=== PATIENT | male | born 1955 | race Caucasian/White ===

== ENCOUNTER 2022-06-17 00:27 | Inpatient (IN) | payer MEDICARE, BC ==
[~2022-06-17] VITALS: Ht 180.3 cm; Wt 95.3 kg
[2022-06-17 00:59] LABS: ABG BASE EXCESS -1.8 mmol/L; ABG HCO3 21.4 mmol/L; ABG PCO2 31.3 mmHg (35.0-45.0); ABG PH 7.453 (7.350-7.450); ABG SITE LEFT RADIAL; ABG TOTAL HEMOGLOBIN 10.8 G/dL (13.5-18.0); COHb 0.3 % (0.5-1.5); MetHb 0.1 % (0.0-1.5); O2Hb 84.2 % (94.0-97.0); VENT MODE Nasal Cannula
[2022-06-17 01:02] LABS: HEMATOCRIT 31.1 % (36.7-47.1); MEAN CORPUSCULAR VOLUME 86.1 fL (73.0-96.2); PLATELET COUNT (AUTO) 194 K/uL (152-348)
[2022-06-17 01:37] LABS: BILIRUBIN,TOTAL 0.5 mg/dL (0.2-1.0); POTASSIUM 4.2 mmol/L (3.5-5.1); TOTAL PROTEIN, SERUM 6.8 g/dL (6.4-8.2)
[2022-06-17] MEDS ORDERED: IV NORMAL SALINE 500 ML BAG IV ONE (02:00)
[2022-06-17] MEDS ORDERED: ONDANSETRON 4 MG/2 ML VIAL ONE (02:12)
[2022-06-17] MEDS ORDERED: ONDANSETRON 4 MG/2 ML VIAL IV ONE (02:15)
[2022-06-17] MEDS ORDERED: FURO-152 PO (03:18)
[2022-06-17] MEDS ORDERED: FUROSEMIDE 20 MG/2 ML VIAL IV ONE (03:30)
[2022-06-17] MEDS ORDERED: ACETAMINOPHEN 325 MG TABLET PO PRN (03:45)
[2022-06-17] MEDS ORDERED: MORPHINE SULFATE 2 MG/1 ML DISP.SYRIN IVP PRN (03:45)
[2022-06-17] MEDS ORDERED: hydrALAZINE HCL 20 MG/1 ML VIAL IV PRN (03:45)
[2022-06-17] MEDS ORDERED: ONDANSETRON 4 MG/2 ML VIAL IV PRN (03:45)
[2022-06-17] MEDS: FUROSEMIDE 40 MG/4 ML VIAL IV SCH ×2 (03:45→09:34)
[2022-06-17] MEDS ORDERED: ENOXAPARIN SODIUM 100 MG/ML DISP.SYRIN SQ SCH ×2 (03:45→09:00)
[2022-06-17] MEDS ORDERED: FUROSEMIDE 20 MG/2 ML VIAL ONE (04:25)
[2022-06-17] MEDS ORDERED: ALBUTEROL SULFATE 2.5 MG/3 ML NEBU NEB PRN (05:15)
[2022-06-17 06:07] LABS: *AMPHETAMINE, URINE NEGATIVE (NEGATIVE); *CANNABINOID, URINE NEGATIVE (NEGATIVE); *COCCAINE, URINE NEGATIVE (NEGATIVE); *OPIATE, URINE NEGATIVE (NEGATIVE); *PHENCYCLIDINE SCREEN,URINE NEGATIVE (NEGATIVE)
[2022-06-17 08:00] VITALS: BP 146/91
[2022-06-17] MEDS: FLUTICASONE/VILANTEROL 1 EACH BLST.W.DEV INH SCH (09:34)
[2022-06-17] MEDS ORDERED: LORAZEPAM 2 MG/1 ML VIAL IV PRN (10:45)
[2022-06-17 12:00] VITALS: BP 143/82
[2022-06-17] MEDS: LORAZEPAM 2 MG/1 ML VIAL IV PRN ×2 (12:05→22:28)
[2022-06-17] MEDS: CHLORDIAZEPOXIDE HCL 25 MG CAPSULE PO SCH ×2 (13:17→17:45)
[2022-06-17] MEDS: FOLIC ACID 1 MG TABLET PO SCH (13:17)
[2022-06-17] MEDS: THIAMINE HCL 100 MG TABLET PO SCH (13:17)
[2022-06-17] MEDS: CEphaleXIN 500 MG CAPSULE PO SCH ×3 (13:17→20:45)
[2022-06-17 16:00] VITALS: BP 123/69
[2022-06-17] MEDS ORDERED: ATOR40TA PO (16:32)
[2022-06-17] MEDS ORDERED: LOSA25TA27 PO (16:32)
[2022-06-17] MEDS ORDERED: AMIO200T5 PO (16:32)
[2022-06-17] MEDS ORDERED: FURO40TA5 PO (16:32)
[2022-06-17] MEDS ORDERED: CARV6.252 PO (16:32)
[2022-06-17] MEDS ORDERED: SPIR25TA6 PO (16:32)
[2022-06-17] MEDS ORDERED: APIX5TAB PO (16:32)
[2022-06-17] MEDS ORDERED: HEPARIN/D5W DRIP 500 ML IV PRN (17:15)
[2022-06-17] MEDS: APIXABAN 5 MG TABLET PO SCH (20:46)
[2022-06-17 20:54] VITALS: BP 114/60
[2022-06-17 23:51] VITALS: BP 120/55
[2022-06-18] MEDS ORDERED: AMIODARONE HCL IV 150 MG in IV DEXTROSE 5% 100 ML IV ONE (01:00)
[2022-06-18] MEDS ORDERED: AMIODARONE HCL IV 900 MG in IV DEXTROSE 5% 482 ML IV PRN (01:10)
[2022-06-18] MEDS ORDERED: AMIODARONE HCL 150 MG/3 ML VIAL IV ONE ×2 (01:14→01:20)
[2022-06-18 07:12] LABS: HEMATOCRIT 29.6 % (36.7-47.1); MEAN CORPUSCULAR HEMOGLOBIN 28.1 uug (23.8-33.4); MEAN CORPUSCULAR VOLUME 85.7 fL (73.0-96.2); PLATELET COUNT (AUTO) 159 K/uL (152-348)
[2022-06-18 07:20] LABS: THYROID STIMULATING HORMONE 3.159 mIU/mL (0.358-3.740)
[2022-06-18 07:38] LABS: CREATININE 1.2 mg/dL (0.6-1.3); PHOSPHOROUS 3.6 mg/dL (2.5-4.9); POTASSIUM 3.7 mmol/L (3.5-5.1)
[2022-06-18 08:00] VITALS: BP_SYST 106; BP_SYST 132; BP_DIAS 68; BP_DIAS 78
[2022-06-18] MEDS ORDERED: AMIODARONE HCL 200 MG TABLET PO SCH ×3 (09:00→11:00)
[2022-06-18] MEDS ORDERED: SPIRONOLACTONE 25 MG TABLET PO SCH (09:00)
[2022-06-18] MEDS ORDERED: LOSARTAN POTASSIUM 25 MG TABLET PO SCH (09:00)
[2022-06-18] MEDS ORDERED: POTASSIUM CHLORIDE 20 MEQ POWDER PACKET PO ONE (09:00)
[2022-06-18] MEDS ORDERED: FUROSEMIDE 20 MG TABLET PO SCH ×2 (09:00)
[2022-06-18] MEDS ORDERED: CARVEDILOL 6.25 MG TABLET PO SCH (09:00)
[2022-06-18] MEDS ORDERED: FUROSEMIDE 40 MG TABLET PO SCH (09:00)
[2022-06-18] MEDS: CEphaleXIN 500 MG CAPSULE PO SCH ×2 (09:05→13:18)
[2022-06-18] MEDS: CHLORDIAZEPOXIDE HCL 25 MG CAPSULE PO SCH ×2 (09:05→13:18)
[2022-06-18] MEDS: FOLIC ACID 1 MG TABLET PO SCH (09:05)
[2022-06-18] MEDS: THIAMINE HCL 100 MG TABLET PO SCH (09:09)
[2022-06-18] MEDS: FLUTICASONE/VILANTEROL 1 EACH BLST.W.DEV INH SCH (09:10)
[2022-06-18] MEDS ORDERED: AMIODARONE HCL IV 450 MG in IV DEXTROSE 5% 250 ML IV PRN (09:15)
[2022-06-18] MEDS: APIXABAN 5 MG TABLET PO SCH (09:57)
[2022-06-18] MEDS ORDERED: CHLO25CA22 PO (11:44)
[2022-06-18 12:00] VITALS: BP 107/71
[2022-06-18] MEDS ORDERED: ATORVASTATIN 40 MG TABLET PO SCH (21:00)
== END 2022-06-18 16:00 | disposition home or self-care (01) | DRG 896 ==
LOC: ER 00:27 → TELE3 03:22 → TELE-TD3 06-18 01:00
PROVIDERS: ADMIT Nurse Practitioner Family; ATTEND Nurse Practitioner Family
DX: F10.239 Alcohol dependence with withdrawal, unspecified (principal); I50.33 Acute on chronic diastolic (congestive) heart failure; J96.01 Acute respiratory failure with hypoxia; I42.6 Alcoholic cardiomyopathy; E87.20 Acidosis, unspecified; I48.0 Paroxysmal atrial fibrillation; Z20.822 Contact with and (suspected) exposure to COVID-19; Z79.01 Long term (current) use of anticoagulants; D64.9 Anemia, unspecified; Z87.891 Personal history of nicotine dependence; Y90.3 Blood alcohol level of 60-79 mg/100 ml; F10.229 Alcohol dependence with intoxication, unspecified
CPT/HCPCS: 36415; 36600; 71045; 83550; 83605; 84100; 84443; 84484; 85025; 85730; 87400; 93005; 93307; A4663; A6209; G0378; G0480; J0282; J1650; J1940; J2060; J2405; J7040; J7050